=== PATIENT | female | born 1950 | race Caucasian/White ===

== ENCOUNTER 2018-07-04 15:22 | Emergency (ER) | payer MEDICARE ==
[2018-07-04] MEDS ORDERED: METHYLPREDNISOLONE SOD SUCC 125MG/2ML VIAL ONE (16:03)
[2018-07-04] MEDS ORDERED: IPRATROPIUM/ALBUTEROL SULFATE 3 ML SOLUTION IH ONE (16:05)
[2018-07-04 16:28] LABS: EOSINOPHILS % (AUTO) 2.6 % (0.0-8.0); HEMATOCRIT 38.3 % (36-48); LYMPHOCYTES % (AUTO) 8.7 % (21.0-51.0); MEAN CORPUSCULAR HEMOGLOBIN 28.6 pg (27.0-33.0); MEAN CORPUSCULAR HGB CONC 32.4 g/dL (32.0-36.0); MEAN CORPUSCULAR VOLUME 88.1 fL (79-99); MONOCYTES % (AUTO) 12.3 % (3.0-13.0); NEUTROPHILS % (AUTO) 75.4 % (40.0-77.0); NUCLEATED RED BLOOD CELLS 0.1 % (0.0-0.19); PLATELET COUNT (AUTO) 174 K/uL (130-400); RED BLOOD CELL COUNT(AUTO) 4.35 MIL/uL (4.00-5.50); RED CELL DISTRIBUTION WIDTH 15.4 % (11.0-15.5); WHITE BLOOD COUNT (AUTO) 9.4 K/uL (4.8-10.8)
[2018-07-04 16:55] LABS: CREATININE 2.1 mg/dL (0.5-1.5); POTASSIUM 4.2 mmol/L (3.5-5.1)
[2018-07-04 17:01] LABS: ALBUMIN 3.2 g/dL (3.5-5.0); BILIRUBIN,TOTAL 0.4 mg/dL (0.2-1.0); TOTAL PROTEIN, SERUM 6.9 g/dL (6.0-8.3)
[2018-07-04 17:02] LABS: INR 0.97 (0.85-1.15); PARTIAL THROMBOPLASTIN TIME 28.8 SEC (26.3-35.5); PROTHROMBIN TIME 10.2 SEC (9.6-11.6)
== END 2018-07-04 17:59 | disposition home or self-care (01) ==
LOC: EDH 15:22
DX: J44.1 Chronic obstructive pulmonary disease with (acute) exacerbation (principal); R07.1 Chest pain on breathing; Z90.49 Acquired absence of other specified parts of digestive tract; Z87.442 Personal history of urinary calculi; Z88.0 Allergy status to penicillin; Z88.2 Allergy status to sulfonamides; Z88.6 Allergy status to analgesic agent; Z88.8 Allergy status to other drugs, medicaments and biological substances; Z91.041 Radiographic dye allergy status; Z72.0 Tobacco use
CPT/HCPCS: 36415; 71046; 80053; 82550; 84484; 85025; 85610; 85730; 93005; 94640; 96374; 99284; J2930

== ENCOUNTER 2021-03-18 21:56 | Inpatient (IN) | payer MEDICARE ==
[~2021-03-18] VITALS: Ht 175.3 cm; Wt 67.7 kg
[2021-03-19 00:35] LABS: EOSINOPHILS % (AUTO) 5.2 % (0.0-8.0); HEMATOCRIT 33.6 % (36-48); LYMPHOCYTES % (AUTO) 14.4 % (21.0-51.0); MEAN CORPUSCULAR HEMOGLOBIN 29.4 pg (27.0-33.0); MEAN CORPUSCULAR HGB CONC 31.3 g/dL (32.0-36.0); MEAN CORPUSCULAR VOLUME 94.1 fL (79-99); MONOCYTES % (AUTO) 8.3 % (3.0-13.0); NEUTROPHILS % (AUTO) 70.2 % (40.0-77.0); PLATELET COUNT (AUTO) 216 K/uL (130-400); RED BLOOD CELL COUNT(AUTO) 3.57 MIL/uL (4.00-5.50); RED CELL DISTRIBUTION WIDTH 17.6 % (11.0-15.5); WHITE BLOOD COUNT (AUTO) 12.9 K/uL (4.8-10.8)
[2021-03-19 00:44] LABS: ALBUMIN 2.1 g/dL (3.5-5.0); BILIRUBIN,TOTAL 0.3 mg/dL (0.2-1.0); CREATININE 5.2 mg/dL (0.5-1.5); CRP QUANTITATIVE 53.3 mg/L (0.00-9.0); POTASSIUM 5.1 mmol/L (3.5-5.1); TOTAL PROTEIN, SERUM 6.3 g/dL (6.0-8.3)
[2021-03-19 01:04] LABS: B-TYPE NATRIURETIC PEPTIDE 124 pg/mL (0-100)
[2021-03-19 01:39] LABS: ERYTHROCYTE SEDIMENTATION RATE 44 MM/HR (0-30)
[2021-03-19] MEDS ORDERED: DiphenhydrAMINE HCL 50 MG/ML VIAL IV ONE (02:30)
[2021-03-19] MEDS ORDERED: 0.9%NACL 1000ML 1,000 ML IV ONE (03:00)
[2021-03-19] MEDS ORDERED: ACETAMINOPHEN 325 MG TAB PO PRN (03:00)
[2021-03-19] MEDS: 0.9%NACL 1000ML 1,000 ML IV SCH ×2 (03:00→13:37)
[2021-03-19] MEDS ORDERED: CLINDAMYCIN IVPB 900MG/50ML 50 ML IV ONE (03:00)
[2021-03-19] MEDS ORDERED: NITROGLYCERIN 0.4 MG SL TAB SL PRN (03:00)
[2021-03-19] MEDS ORDERED: ONDANSETRON 4MG INJ IVP ONE (03:00)
[2021-03-19] MEDS ORDERED: IPRATROPIUM/ALBUTEROL SULFATE 3 ML SOLUTION IH PRN (03:00)
[2021-03-19 04:11] LABS: BILIRUBIN,URINE Negative (NEGATIVE); COLOR,URINE Yellow (YELLOW); GLUCOSE, URINE (UA) Negative (NEGATIVE); KETONES,URINE Negative (NEGATIVE); LEUKOCYTE ESTERASE ,URINE Large (NEGATIVE); NITRATE,URINE Positive (NEGATIVE); OCCULT BLOOD,URINE Large (NEGATIVE); PH,URINE 5.5 (5.0-8.0); PROTEIN,URINE >=1000 mg/dL (NEGATIVE); UROBILINOGEN,URINE 0.2 mg/dL (0.2-1.0)
[2021-03-19 04:12] LABS: APPEARANCE,URINE CLOUDY (CLEAR)
[2021-03-19 04:27] LABS: BACTERIA,URINE Moderate /HPF (None Seen); RBC,URINE 26-50 /HPF (0-1); SQUAMOUS EPITHELIAL CELL,UR Rare /HPF (0-2); WBC,URINE Full Field /HPF (0-1)
[2021-03-19 05:58] LABS: INR 1.23 (0.85-1.15); PROTHROMBIN TIME 13.2 SEC (9.6-11.6)
[2021-03-19 05:59] LABS: PARTIAL THROMBOPLASTIN TIME 30.9 SEC (26.3-35.5)
[2021-03-19] MEDS: ACETAMINOPHEN 325 MG TAB PO PRN ×3 (06:15→21:27)
[2021-03-19 06:25] LABS: MAGNESIUM 0.3 mg/dL (1.80-2.40)
[2021-03-19] MEDS ORDERED: FAMOTIDINE 20MG TAB PO SCH (09:00)
[2021-03-19] MEDS: FAMOTIDINE 20MG TAB PO SCH ×2 (09:00→21:06)
[2021-03-19] MEDS: HEPARIN 5,000 UNIT VIAL SQ SCH ×3 (09:01→21:11)
[2021-03-19] MEDS: NICOTINE 21 MG/ 24 HR PATCH TD SCH (09:01)
[2021-03-19] MEDS ORDERED: SODIUM BICARBONATE 650 MG TAB PO SCH (10:00)
[2021-03-19 10:18] VITALS: BP 151/88
[2021-03-19] MEDS: CLINDAMYCIN IVPB 600MG/50ML 50 ML IV SCH ×2 (14:20→21:15)
[2021-03-19 15:30] VITALS: BP 137/57
[2021-03-19] MEDS: SODIUM BICARBONATE 650 MG TAB PO SCH (16:55)
[2021-03-19 20:14] VITALS: BP 127/52
[2021-03-19 23:48] VITALS: BP 111/46
[2021-03-20] MEDS: 0.9%NACL 1000ML 1,000 ML IV SCH ×3 (02:27→16:46)
[2021-03-20] MEDS: ACETAMINOPHEN 325 MG TAB PO PRN ×2 (03:20→10:31)
[2021-03-20 03:29] VITALS: BP 108/56
[2021-03-20] MEDS: CLINDAMYCIN IVPB 600MG/50ML 50 ML IV SCH ×3 (04:31→20:59)
[2021-03-20 05:18] LABS: BASOPHILS % (AUTO) 0.9 % (0.0-5.0); EOSINOPHILS % (AUTO) 7.2 % (0.0-8.0); HEMATOCRIT 30.1 % (36-48); LYMPHOCYTES % (AUTO) 19.2 % (21.0-51.0); MEAN CORPUSCULAR HEMOGLOBIN 28.3 pg (27.0-33.0); MEAN CORPUSCULAR HGB CONC 30.6 g/dL (32.0-36.0); MEAN CORPUSCULAR VOLUME 92.6 fL (79-99); NEUTROPHILS % (AUTO) 62.8 % (40.0-77.0); PLATELET COUNT (AUTO) 182 K/uL (130-400); RED BLOOD CELL COUNT(AUTO) 3.25 MIL/uL (4.00-5.50); RED CELL DISTRIBUTION WIDTH 17.6 % (11.0-15.5)
[2021-03-20 05:51] LABS: ALBUMIN 1.9 g/dL (3.5-5.0); BILIRUBIN,TOTAL 0.2 mg/dL (0.2-1.0); CREATININE 4.8 mg/dL (0.5-1.5); MAGNESIUM 0.4 mg/dL (1.80-2.40); TOTAL PROTEIN, SERUM 5.4 g/dL (6.0-8.3)
[2021-03-20 05:54] LABS: % IRON SATURATION 38.7 % (22-44)
[2021-03-20 05:56] LABS: POTASSIUM 4.6 mmol/L (3.5-5.1)
[2021-03-20 08:00] VITALS: BP 110/61
[2021-03-20] MEDS: SODIUM BICARBONATE 650 MG TAB PO SCH ×2 (09:23→16:45)
[2021-03-20] MEDS: NICOTINE 21 MG/ 24 HR PATCH TD SCH (09:23)
[2021-03-20] MEDS: HEPARIN 5,000 UNIT VIAL SQ SCH ×3 (09:23→21:53)
[2021-03-20] MEDS: FAMOTIDINE 20MG TAB PO SCH ×2 (09:23→20:59)
[2021-03-20 12:00] VITALS: BP 133/57
[2021-03-20] MEDS ORDERED: DIPHENHYDRAMINE HCL 25 MG CAPSULE PO ONE (13:00)
[2021-03-20] MEDS: EPOETIN ALFA-EPBX (ESRD) 10,000 UNIT/ML VIAL SQ SCH (13:26)
[2021-03-20 16:00] VITALS: BP 131/59
[2021-03-20 20:00] VITALS: BP 125/49
[2021-03-20] MEDS: ONDANSETRON 4MG INJ IV PRN (23:00)
[2021-03-20] MEDS: HYDROMORPHONE 0.5 MG SYG (0.5MG/0.5ML) IVP PRN (23:03)
[2021-03-21 01:12] VITALS: BP 118/50
[2021-03-21 04:22] VITALS: BP 136/63
[2021-03-21] MEDS: 0.9%NACL 1000ML 1,000 ML IV SCH ×2 (04:52→14:25)
[2021-03-21] MEDS: CLINDAMYCIN IVPB 600MG/50ML 50 ML IV SCH ×3 (04:52→20:35)
[2021-03-21] MEDS: ACETAMINOPHEN 325 MG TAB PO PRN ×2 (04:57→23:14)
[2021-03-21 06:41] LABS: BASOPHILS % (AUTO) 0.8 % (0.0-5.0); EOSINOPHILS % (AUTO) 7.1 % (0.0-8.0); HEMATOCRIT 27.7 % (36-48); LYMPHOCYTES % (AUTO) 20.2 % (21.0-51.0); MEAN CORPUSCULAR HEMOGLOBIN 28.1 pg (27.0-33.0); MEAN CORPUSCULAR HGB CONC 30.3 g/dL (32.0-36.0); MEAN CORPUSCULAR VOLUME 92.6 fL (79-99); MONOCYTES % (AUTO) 11.8 % (3.0-13.0); NEUTROPHILS % (AUTO) 59.2 % (40.0-77.0); PLATELET COUNT (AUTO) 157 K/uL (130-400); RED BLOOD CELL COUNT(AUTO) 2.99 MIL/uL (4.00-5.50); RED CELL DISTRIBUTION WIDTH 17.7 % (11.0-15.5); WHITE BLOOD COUNT (AUTO) 6.3 K/uL (4.8-10.8)
[2021-03-21 06:56] LABS: CARBON DIOXIDE 12 mmol/L (21-32); CHLORIDE 110 mmol/L (101-111); CREATININE 4.9 mg/dL (0.5-1.5); GLOMERULAR FILTR. RATE CALC 9 mL/min (>60); GLUCOSE,RANDOM 73 mg/dL (70-105); SODIUM SERUM 140 mmol/L (136-145); UREA NITROGEN, BLOOD 51 mg/dL (7-18)
[2021-03-21] MEDS: HYDROMORPHONE 0.5 MG SYG (0.5MG/0.5ML) IVP PRN ×3 (07:09→22:58)
[2021-03-21 08:00] VITALS: BP 108/43
[2021-03-21] MEDS: HEPARIN 5,000 UNIT VIAL SQ SCH ×3 (09:00→21:18)
[2021-03-21] MEDS: NICOTINE 21 MG/ 24 HR PATCH TD SCH (10:36)
[2021-03-21] MEDS: SODIUM BICARBONATE 650 MG TAB PO SCH ×2 (10:36→17:00)
[2021-03-21] MEDS: FAMOTIDINE 20MG TAB PO SCH ×2 (10:36→20:35)
[2021-03-21] MEDS ORDERED: DIPHENHYDRAMINE HCL 25 MG CAPSULE ONE (12:34)
[2021-03-21] MEDS ORDERED: CALCITRIOL 0.25 MCG CAP PO SCH (13:00)
[2021-03-21 16:43] VITALS: BP 129/56
[2021-03-21 20:00] VITALS: BP 136/48
[2021-03-21] MEDS: DIPHENHYDRAMINE HCL 25 MG CAPSULE PO PRN (20:35)
[2021-03-21] MEDS: ONDANSETRON 4MG INJ IV PRN (22:58)
[2021-03-21 23:29] VITALS: BP 111/55
[2021-03-22] MEDS: 0.9%NACL 1000ML 1,000 ML IV SCH ×2 (01:00→11:00)
[2021-03-22 04:00] VITALS: BP 145/60
[2021-03-22] MEDS: CLINDAMYCIN IVPB 600MG/50ML 50 ML IV SCH (05:28)
[2021-03-22] MEDS: ONDANSETRON 4MG INJ IV PRN (05:28)
[2021-03-22] MEDS: HYDROMORPHONE 0.5 MG SYG (0.5MG/0.5ML) IVP PRN ×3 (05:28→22:41)
[2021-03-22] MEDS: DIPHENHYDRAMINE HCL 25 MG CAPSULE PO PRN ×3 (05:29→21:23)
[2021-03-22 06:22] LABS: BASOPHILS % (AUTO) 0.8 % (0.0-5.0); EOSINOPHILS % (AUTO) 5.7 % (0.0-8.0); HEMATOCRIT 27.8 % (36-48); LYMPHOCYTES % (AUTO) 20.3 % (21.0-51.0); MEAN CORPUSCULAR HEMOGLOBIN 28.7 pg (27.0-33.0); MEAN CORPUSCULAR VOLUME 89.7 fL (79-99); MONOCYTES % (AUTO) 13.6 % (3.0-13.0); NEUTROPHILS % (AUTO) 58.6 % (40.0-77.0); PLATELET COUNT (AUTO) 153 K/uL (130-400); RED CELL DISTRIBUTION WIDTH 17.6 % (11.0-15.5); WHITE BLOOD COUNT (AUTO) 6.1 K/uL (4.8-10.8)
[2021-03-22 06:44] LABS: ALBUMIN 1.9 g/dL (3.5-5.0); BILIRUBIN,TOTAL 0.2 mg/dL (0.2-1.0); CREATININE 4.4 mg/dL (0.5-1.5); PHOSPHORUS 6.3 mg/dL (2.5-4.9); POTASSIUM 3.7 mmol/L (3.5-5.1); TOTAL PROTEIN, SERUM 5.6 g/dL (6.0-8.3)
[2021-03-22 08:48] VITALS: BP 130/79
[2021-03-22] MEDS: NICOTINE 21 MG/ 24 HR PATCH TD SCH (09:19)
[2021-03-22] MEDS: FAMOTIDINE 20MG TAB PO SCH ×2 (09:20→21:28)
[2021-03-22] MEDS: CALCITRIOL 0.25 MCG CAP PO SCH (09:20)
[2021-03-22] MEDS: SODIUM BICARBONATE 650 MG TAB PO SCH ×2 (09:20→16:52)
[2021-03-22] MEDS: HEPARIN 5,000 UNIT VIAL SQ SCH ×3 (09:35→21:32)
[2021-03-22 12:00] VITALS: BP 141/50
[2021-03-22] MEDS ORDERED: MEROPENEM 1 GM VIAL IVP SCH (12:00)
[2021-03-22] MEDS ORDERED: MEROPENEM 500 MG VIAL IVP SCH (13:00)
[2021-03-22 18:13] VITALS: BP 124/53
[2021-03-22 20:00] VITALS: BP 150/46
[2021-03-22] MEDS: MEROPENEM 500 MG VIAL IVP SCH (22:30)
[2021-03-23] VITALS (7 sets, daily range): BP systolic 116–163; BP diastolic 48–59
[2021-03-23 05:01] LABS: BASOPHILS % (AUTO) 0.8 % (0.0-5.0); EOSINOPHILS % (AUTO) 7.5 % (0.0-8.0); HEMATOCRIT 26.8 % (36-48); LYMPHOCYTES % (AUTO) 22.9 % (21.0-51.0); MEAN CORPUSCULAR HEMOGLOBIN 28.8 pg (27.0-33.0); MEAN CORPUSCULAR HGB CONC 31.7 g/dL (32.0-36.0); MEAN CORPUSCULAR VOLUME 90.8 fL (79-99); MONOCYTES % (AUTO) 12.6 % (3.0-13.0); PLATELET COUNT (AUTO) 147 K/uL (130-400); RED BLOOD CELL COUNT(AUTO) 2.95 MIL/uL (4.00-5.50); RED CELL DISTRIBUTION WIDTH 17.6 % (11.0-15.5)
[2021-03-23 05:28] LABS: ALANINE AMINOTRANSFERASE 19 U/L (12-78); ALBUMIN 1.7 g/dL (3.5-5.0); ASPARTATE AMINOTRANSFERASE 19 U/L (10-37); BILIRUBIN,TOTAL 0.1 mg/dL (0.2-1.0); CARBON DIOXIDE 14 mmol/L (21-32); CHLORIDE 110 mmol/L (101-111); CREATININE 4.3 mg/dL (0.5-1.5); GLOMERULAR FILTR. RATE CALC 11 mL/min (>60); GLUCOSE,RANDOM 79 mg/dL (70-105); POTASSIUM 3.9 mmol/L (3.5-5.1); SODIUM SERUM 141 mmol/L (136-145); TOTAL PROTEIN, SERUM 5.2 g/dL (6.0-8.3); UREA NITROGEN, BLOOD 46 mg/dL (7-18)
[2021-03-23] MEDS: HYDROMORPHONE 0.5 MG SYG (0.5MG/0.5ML) IVP PRN ×2 (08:23→23:09)
[2021-03-23] MEDS: SODIUM BICARBONATE 650 MG TAB PO SCH ×2 (08:24→16:48)
[2021-03-23] MEDS: DIPHENHYDRAMINE HCL 25 MG CAPSULE PO PRN ×2 (08:24→19:54)
[2021-03-23] MEDS: NICOTINE 21 MG/ 24 HR PATCH TD SCH (10:05)
[2021-03-23] MEDS: FAMOTIDINE 20MG TAB PO SCH ×2 (10:05→20:43)
[2021-03-23] MEDS: MEROPENEM 500 MG VIAL IVP SCH ×2 (10:05→20:42)
[2021-03-23] MEDS: HEPARIN 5,000 UNIT VIAL SQ SCH ×3 (10:06→20:52)
[2021-03-23] MEDS: CALCITRIOL 0.25 MCG CAP PO SCH (10:06)
[2021-03-23] MEDS: EPOETIN ALFA-EPBX (ESRD) 10,000 UNIT/ML VIAL SQ SCH (11:55)
[2021-03-24] VITALS (7 sets, daily range): BP systolic 117–156; BP diastolic 44–68
[2021-03-24] MEDS: ACETAMINOPHEN 325 MG TAB PO PRN ×2 (00:53→23:24)
[2021-03-24] MEDS: 0.9%NACL 1000ML 1,000 ML IV SCH ×3 (02:31→23:00)
[2021-03-24 05:13] LABS: BASOPHILS % (AUTO) 0.5 % (0.0-5.0); EOSINOPHILS % (AUTO) 6.5 % (0.0-8.0); HEMATOCRIT 30.6 % (36-48); LYMPHOCYTES % (AUTO) 16.6 % (21.0-51.0); MEAN CORPUSCULAR HEMOGLOBIN 28.5 pg (27.0-33.0); MEAN CORPUSCULAR HGB CONC 30.7 g/dL (32.0-36.0); MEAN CORPUSCULAR VOLUME 92.7 fL (79-99); MONOCYTES % (AUTO) 13.3 % (3.0-13.0); NEUTROPHILS % (AUTO) 61.2 % (40.0-77.0); PLATELET COUNT (AUTO) 153 K/uL (130-400); RED CELL DISTRIBUTION WIDTH 17.8 % (11.0-15.5); WHITE BLOOD COUNT (AUTO) 7.4 K/uL (4.8-10.8)
[2021-03-24] MEDS: HYDROMORPHONE 0.5 MG SYG (0.5MG/0.5ML) IVP PRN ×2 (05:23→21:26)
[2021-03-24 06:14] LABS: ALBUMIN 1.9 g/dL (3.5-5.0); BILIRUBIN,TOTAL 0.2 mg/dL (0.2-1.0); CREATININE 4.4 mg/dL (0.5-1.5); PHOSPHORUS 5.3 mg/dL (2.5-4.9); POTASSIUM 4.1 mmol/L (3.5-5.1); THYROID STIMULATING HORMONE 11.38 uIU/mL (0.36-3.74)
[2021-03-24] MEDS: SODIUM BICARBONATE 650 MG TAB PO SCH ×2 (08:40→17:03)
[2021-03-24] MEDS: HEPARIN 5,000 UNIT VIAL SQ SCH (10:12)
[2021-03-24] MEDS: CALCITRIOL 0.25 MCG CAP PO SCH (10:13)
[2021-03-24] MEDS: FAMOTIDINE 20MG TAB PO SCH ×2 (10:13→21:22)
[2021-03-24] MEDS: DIPHENHYDRAMINE HCL 25 MG CAPSULE PO PRN ×2 (10:13→21:25)
[2021-03-24] MEDS: MEROPENEM 500 MG VIAL IVP SCH ×2 (10:14→21:22)
[2021-03-24] MEDS: NICOTINE 21 MG/ 24 HR PATCH TD SCH (10:14)
[2021-03-25 03:49] VITALS: BP 138/66
[2021-03-25] MEDS: HYDROMORPHONE 0.5 MG SYG (0.5MG/0.5ML) IVP PRN (03:58)
[2021-03-25 07:57] VITALS: BP 157/57
[2021-03-25] MEDS ORDERED: COMPOUND IV MISC 1 EACH IVSOLN MISC PRN (08:30)
[2021-03-25 08:31] LABS: HEMATOCRIT 27.8 % (36-48); MEAN CORPUSCULAR HGB CONC 31.7 g/dL (32.0-36.0); MEAN CORPUSCULAR VOLUME 91.7 fL (79-99); RED BLOOD CELL COUNT(AUTO) 3.03 MIL/uL (4.00-5.50); RED CELL DISTRIBUTION WIDTH 17.9 % (11.0-15.5); WHITE BLOOD COUNT (AUTO) 7.6 K/uL (4.8-10.8)
[2021-03-25 08:48] LABS: ALBUMIN 1.7 g/dL (3.5-5.0); BILIRUBIN,TOTAL 0.2 mg/dL (0.2-1.0); CREATININE 4.2 mg/dL (0.5-1.5); POTASSIUM 3.8 mmol/L (3.5-5.1); TOTAL PROTEIN, SERUM 5.4 g/dL (6.0-8.3)
[2021-03-25] MEDS: CALCITRIOL 0.25 MCG CAP PO SCH (10:11)
[2021-03-25] MEDS: FAMOTIDINE 20MG TAB PO SCH ×2 (10:11→20:03)
[2021-03-25] MEDS: NICOTINE 21 MG/ 24 HR PATCH TD SCH (10:11)
[2021-03-25] MEDS: MEROPENEM 500 MG VIAL IVP SCH (10:11)
[2021-03-25] MEDS: DIPHENHYDRAMINE HCL 25 MG CAPSULE PO PRN (10:11)
[2021-03-25] MEDS: TICAGRELOR 90 MG TABLET PO SCH ×2 (10:12→20:03)
[2021-03-25] MEDS: 0.9%NACL 1000ML 1,000 ML IV SCH ×2 (10:12→17:25)
[2021-03-25] MEDS: IRON SUCROSE COMPLEX 300 MG in 0.9%NACL 50ML 50 ML IV SCH (10:12)
[2021-03-25] MEDS: SODIUM BICARBONATE 650 MG TAB PO SCH ×2 (10:12→17:24)
[2021-03-25 12:01] VITALS: BP 142/60
[2021-03-25 16:42] VITALS: BP 147/61
[2021-03-25] MEDS: CEFUROXIME AXETIL 250 MG TABLET PO SCH (17:24)
[2021-03-25] MEDS: LEVOFLOXACIN 500 MG TABLET PO SCH (17:24)
[2021-03-25 20:15] VITALS: BP 146/62
[2021-03-25] MEDS ORDERED: HYDROMORPHONE 0.5 MG SYG (0.5MG/0.5ML) ONE (21:46)
[2021-03-25] MEDS: ACETAMINOPHEN 325 MG TAB PO PRN (21:53)
[2021-03-25] MEDS ORDERED: HYDROMORPHONE 0.5 MG SYG (0.5MG/0.5ML) IVP PRN (22:00)
[2021-03-26] VITALS: BP 141/61
[2021-03-26 03:47] VITALS: BP 136/60
[2021-03-26 04:58] LABS: HEMATOCRIT 25.7 % (36-48); MEAN CORPUSCULAR HEMOGLOBIN 28.4 pg (27.0-33.0); MEAN CORPUSCULAR HGB CONC 31.5 g/dL (32.0-36.0); MEAN CORPUSCULAR VOLUME 90.2 fL (79-99); PLATELET COUNT (AUTO) 144 K/uL (130-400); RED BLOOD CELL COUNT(AUTO) 2.85 MIL/uL (4.00-5.50); WHITE BLOOD COUNT (AUTO) 7.5 K/uL (4.8-10.8)
[2021-03-26] MEDS: 0.9%NACL 1000ML 1,000 ML IV SCH (05:00)
[2021-03-26 05:31] LABS: BAND NEUTROPHILS % (MANUAL) 2 % (0-2); EOSINOPHILS % (MANUAL) 12 % (1-6); LYMPHOCYTES % (MANUAL) 20 % (22-44); MAN.DIFF COMMENT-IMPRESSION MANUAL DIFFERENTIAL; MONOCYTES % (MANUAL) 9 % (2-9); SEGMENTED NEUTROPHILS % 57 % (40-70)
[2021-03-26 05:34] LABS: PLATELET MORPHOLOGY COMMENT ADEQUATE
[2021-03-26 06:06] LABS: CREATININE 4.3 mg/dL (0.5-1.5); POTASSIUM 3.5 mmol/L (3.5-5.1)
[2021-03-26 06:19] LABS: ALBUMIN 1.6 g/dL (3.5-5.0); BILIRUBIN,TOTAL 0.1 mg/dL (0.2-1.0); TOTAL PROTEIN, SERUM 5.2 g/dL (6.0-8.3)
[2021-03-26 08:01] VITALS: BP 164/55
[2021-03-26] MEDS: IRON SUCROSE COMPLEX 300 MG in 0.9%NACL 50ML 50 ML IV SCH ×2 (09:00→10:13)
[2021-03-26] MEDS: CALCITRIOL 0.25 MCG CAP PO SCH (10:10)
[2021-03-26] MEDS: TICAGRELOR 90 MG TABLET PO SCH (10:11)
[2021-03-26] MEDS: SODIUM BICARBONATE 650 MG TAB PO SCH (10:12)
[2021-03-26] MEDS: FAMOTIDINE 20MG TAB PO SCH (10:12)
[2021-03-26] MEDS: NICOTINE 21 MG/ 24 HR PATCH TD SCH (10:28)
[2021-03-26] MEDS ORDERED: LEVO750T46 PO (11:06)
[2021-03-26 11:17] VITALS: BP 152/71
[2021-03-26] MEDS: LEVOFLOXACIN 500 MG TABLET PO SCH (13:05)
[2021-03-26] MEDS: CEFUROXIME AXETIL 250 MG TABLET PO SCH (13:06)
== END 2021-03-26 13:00 | disposition home or self-care (01) | DRG 540 ==
LOC: EDH 21:56 → EDHIP 03-19 02:41 → 3DH 03-19 15:41
PROVIDERS: ADMIT Internal Medicine; ATTEND Internal Medicine
DX: M86.8X7 Other osteomyelitis, ankle and foot (principal); L03.116 Cellulitis of left lower limb; E87.2 Acidosis; N17.9 Acute kidney failure, unspecified; K50.90 Crohn's disease, unspecified, without complications; N39.0 Urinary tract infection, site not specified; N18.4 Chronic kidney disease, stage 4 (severe); I96 Gangrene, not elsewhere classified; I73.9 Peripheral vascular disease, unspecified; L97.529 Non-pressure chronic ulcer of other part of left foot with unspecified severity; Z20.822 Contact with and (suspected) exposure to COVID-19; E78.00 Pure hypercholesterolemia, unspecified; K21.9 Gastro-esophageal reflux disease without esophagitis; J44.9 Chronic obstructive pulmonary disease, unspecified; M19.90 Unspecified osteoarthritis, unspecified site; F17.210 Nicotine dependence, cigarettes, uncomplicated; B96.20 Unspecified Escherichia coli [E. coli] as the cause of diseases classified elsewhere; D49.7 Neoplasm of unspecified behavior of endocrine glands and other parts of nervous system; D50.9 Iron deficiency anemia, unspecified; Z66 Do not resuscitate; D63.8 Anemia in other chronic diseases classified elsewhere; E83.42 Hypomagnesemia; I12.9 Hypertensive chronic kidney disease with stage 1 through stage 4 chronic kidney disease, or unspecified chronic kidney disease; E83.51 Hypocalcemia; B96.4 Proteus (mirabilis) (morganii) as the cause of diseases classified elsewhere; G89.29 Other chronic pain; N28.89 Other specified disorders of kidney and ureter; Z53.29 Procedure and treatment not carried out because of patient's decision for other reasons; Z51.5 Encounter for palliative care; Z90.710 Acquired absence of both cervix and uterus; Z90.49 Acquired absence of other specified parts of digestive tract; Z88.0 Allergy status to penicillin; Z88.2 Allergy status to sulfonamides; Z88.8 Allergy status to other drugs, medicaments and biological substances; Z88.6 Allergy status to analgesic agent; Z91.041 Radiographic dye allergy status; Z87.442 Personal history of urinary calculi; Z88.1 Allergy status to other antibiotic agents; Z89.519 Acquired absence of unspecified leg below knee; Z91.15 Patient's noncompliance with renal dialysis; Z91.19 Patient's noncompliance with other medical treatment and regimen; Z81.8 Family history of other mental and behavioral disorders; Z82.49 Family history of ischemic heart disease and other diseases of the circulatory system
CPT/HCPCS: 36415; 71045; 73700; 80048; 80053; 80061; 81001; 82306; 82330; 82728; 83540; 83550; 83605; 83735; 83880; 84100; 84145; 84443; 84484; 85025; 85027; 85610; 85651; 85730; 86140; 87040; 87070; 87076; 87077; 87088; 87186; 87635; 87804; 93005; 93925; 93970; 94640; 94664; C9803; G0378; J1170; J1200; J1644; J1756; J2185; J2405; J3490; J7030; Q0163

== ENCOUNTER 2022-04-07 22:21 | Emergency (ER) | payer MEDICARE ==
[~2022-04-07 22:21] MED LIST: ALBU18HF7 IH; AMIO200T68 PO; ASCO500T10 PO; CHOL500051 PO; DIPH25CA85 PO; FOLI0.8T43 PO; GABA300S PO; IPRA3AMP24 IH; LISI40TA9 PO; MELA5TAB20 PO; PANT40TA PO; SEVE800T27 PO; [UNRECOGNIZED DRUG - CODE] PO
[2022-04-07 22:56] LABS: BASOPHILS % (AUTO) 0.9 % (0.0-5.0); EOSINOPHILS % (AUTO) 3.9 % (0.0-8.0); HEMATOCRIT 37.8 % (36-48); LYMPHOCYTES % (AUTO) 19.8 % (21.0-51.0); MEAN CORPUSCULAR HEMOGLOBIN 28.3 pg (27.0-33.0); MEAN CORPUSCULAR HGB CONC 32.5 g/dL (32.0-36.0); MEAN CORPUSCULAR VOLUME 87.1 fL (79-99); MONOCYTES % (AUTO) 11.5 % (3.0-13.0); NEUTROPHILS % (AUTO) 63.7 % (40.0-77.0); PLATELET COUNT (AUTO) 86 K/uL (130-400); RED BLOOD CELL COUNT(AUTO) 4.34 MIL/uL (4.00-5.50); RED CELL DISTRIBUTION WIDTH 14.6 % (11.0-15.5); WHITE BLOOD COUNT (AUTO) 4.4 K/uL (4.8-10.8)
[2022-04-07] MEDS ORDERED: HYDROMORPHONE 0.5 MG SYG (0.5MG/0.5ML) IM ONE (23:00)
[2022-04-07 23:05] LABS: CREATININE 4.4 mg/dL (0.5-1.5); POTASSIUM 3.9 mmol/L (3.5-5.1)
[2022-04-07 23:10] LABS: ALBUMIN 2.9 g/dL (3.5-5.0); TOTAL PROTEIN, SERUM 6.4 g/dL (6.0-8.3)
[2022-04-08] MEDS ORDERED: CLONIDINE HCL 0.2 MG TABLET PO ONE (00:30)
[2022-04-08 09:36] VITALS: BP 117/61
[2022-04-09] MEDS ORDERED: ROSU20TA31 PO (14:18)
[2022-04-09] MEDS ORDERED: LOPE2TAB26 PO (14:18)
[2022-04-09] MEDS ORDERED: GABA-529 PO (14:18)
[2022-04-09] MEDS ORDERED: CALC667C10 PO (14:18)
[2022-04-09] MEDS ORDERED: VITA-164 PO (14:18)
[2022-04-09] MEDS ORDERED: MELA1TAB21 PO (14:18)
[2022-04-11] MEDS ORDERED: TOPI25TA42 PO (12:14)
[2022-04-11] MEDS ORDERED: DIPH25TA22 PO (12:14)
[2022-04-11] MEDS ORDERED: PROC5TAB12 PO (12:14)
== END 2022-04-08 09:36 | disposition home or self-care (01) ==
LOC: EDH 22:21
DX: G43.909 Migraine, unspecified, not intractable, without status migrainosus (principal); J45.909 Unspecified asthma, uncomplicated; E78.00 Pure hypercholesterolemia, unspecified; Z79.899 Other long term (current) drug therapy; Z88.0 Allergy status to penicillin; Z88.2 Allergy status to sulfonamides; Z88.6 Allergy status to analgesic agent; Z88.8 Allergy status to other drugs, medicaments and biological substances
CPT/HCPCS: 99285; 70450; 71045; 84484; 80053; 85025; 36415; 96372; 93005; J1170

== ENCOUNTER 2022-10-09 17:15 | Emergency (ER) | payer MEDICARE ==
[~2022-10-09] VITALS: Ht 175.3 cm; Wt 70.3 kg
[~2022-10-09 17:15] MED LIST changes: -AMIO200T68 PO; -ASCO500T10 PO; +CALC667C10 PO; -CHOL500051 PO; -DIPH25CA85 PO; +DIPH25TA22 PO; -FOLI0.8T43 PO; +GABA-529 PO; -GABA300S PO; -LISI40TA9 PO; +LOPE2TAB26 PO; +MELA1TAB73 PO; -MELA5TAB20 PO; +PROC5TAB12 PO; +ROSU20TA31 PO; +TOPI25TA42 PO; +VITA-348 PO; -[UNRECOGNIZED DRUG - CODE] PO
[2022-10-09 17:55] LABS: HEMATOCRIT 35.6 % (36-48); MEAN CORPUSCULAR HEMOGLOBIN 28.5 pg (27.0-33.0); MEAN CORPUSCULAR HGB CONC 31.2 g/dL (32.0-36.0); MEAN CORPUSCULAR VOLUME 91.5 fL (79-99); RED BLOOD CELL COUNT(AUTO) 3.89 MIL/uL (4.00-5.50)
[2022-10-09 18:01] LABS: APPEARANCE,URINE CLOUDY (CLEAR); BILIRUBIN,URINE NEGATIVE (NEGATIVE); COLOR,URINE LIGHT-ORANGE (YELLOW); GLUCOSE, URINE (UA) 200 mg/dL (NEGATIVE); KETONES,URINE NEGATIVE (NEGATIVE); LEUKOCYTE ESTERASE ,URINE 500 Leu/uL (NEGATIVE); NITRATE,URINE NEGATIVE (NEGATIVE); OCCULT BLOOD,URINE LARGE (NEGATIVE); PH,URINE 8.5 (5.0-8.0); PROTEIN,URINE 600 mg/dL (NEGATIVE); UROBILINOGEN,URINE 0.2 mg/dL (0.2-1.0)
[2022-10-09 18:11] LABS: BACTERIA,URINE MOD /HPF (None Seen); OTHER CASTS, URINE 3 /LPF (None Seen); RBC,URINE TNTC /HPF (0-1); SQUAMOUS EPITHELIAL CELL,UR FEW /HPF (0-2); TRANSITIONAL EPI CELLS,URINE RARE /HPF (None Seen); WBC,URINE TNTC /HPF (0-1)
[2022-10-09 18:12] LABS: CREATININE 7.6 mg/dL (0.5-1.5); POTASSIUM 4.3 mmol/L (3.5-5.1)
[2022-10-09 18:19] LABS: ALBUMIN 2.9 g/dL (3.5-5.0); TOTAL PROTEIN, SERUM 6.1 g/dL (6.0-8.3)
[2022-10-09] MEDS ORDERED: LEVOFLOXACIN 750 MG/D5W 150 ML 150 ML ONE (22:56)
[2022-10-09] MEDS ORDERED: LEVOFLOXACIN 750 MG/D5W 150ML BAG IVPB ONE (23:00)
[2022-10-10] MEDS ORDERED: LEVO750T68 PO (00:42)
[2022-10-10 03:31] VITALS: BP 141/82
== END 2022-10-10 05:11 | disposition home or self-care (01) ==
LOC: EDH 17:15
DX: N39.0 Urinary tract infection, site not specified (principal); R06.02 Shortness of breath; J44.9 Chronic obstructive pulmonary disease, unspecified; F41.9 Anxiety disorder, unspecified; N18.6 End stage renal disease; F17.200 Nicotine dependence, unspecified, uncomplicated; Z90.710 Acquired absence of both cervix and uterus; Z79.899 Other long term (current) drug therapy; Z99.2 Dependence on renal dialysis; Z88.0 Allergy status to penicillin; Z88.1 Allergy status to other antibiotic agents; Z88.2 Allergy status to sulfonamides; Z88.6 Allergy status to analgesic agent; Z88.8 Allergy status to other drugs, medicaments and biological substances; Z90.49 Acquired absence of other specified parts of digestive tract; Z20.822 Contact with and (suspected) exposure to COVID-19
CPT/HCPCS: 99285; 96365; 96366; 71045; 87635; 84484; 80053; 83880; 85027; 87077; 87088; 87186; 87804 ×2; 81001; 36415; 93005; C9803; J1956

== ENCOUNTER 2022-11-22 14:57 | Emergency (ER) | payer MEDICARE ==
[~2022-11-22] VITALS: Ht 175.3 cm; Wt 77.1 kg
[~2022-11-22 14:57] MED LIST changes: -ALBU18HF7 IH; +BRESALTEC IH; -DIPH25TA22 PO; -IPRA3AMP24 IH; -LOPE2TAB26 PO; -MELA1TAB73 PO; +OMEP40CA21 PO; -PANT40TA PO; -ROSU20TA31 PO; -SEVE800T27 PO; -VITA-348 PO
[2022-11-22 17:37] LABS: APPEARANCE,URINE CLOUDY (CLEAR); BILIRUBIN,URINE NEGATIVE (NEGATIVE); COLOR,URINE LIGHT-YELLOW (YELLOW); GLUCOSE, URINE (UA) 150 mg/dL (NEGATIVE); KETONES,URINE 5 mg/dL (NEGATIVE); LEUKOCYTE ESTERASE ,URINE 500 Leu/uL (NEGATIVE); NITRATE,URINE NEGATIVE (NEGATIVE); OCCULT BLOOD,URINE LARGE (NEGATIVE); PROTEIN,URINE 600 mg/dL (NEGATIVE); UROBILINOGEN,URINE 0.2 mg/dL (0.2-1.0)
[2022-11-22 17:42] LABS: BACTERIA,URINE FEW /HPF (None Seen); MUCUS,URINE RARE LPF (None Seen); RBC,URINE 51-100 /HPF (0-1); SQUAMOUS EPITHELIAL CELL,UR MOD /HPF (0-2); WBC,URINE 51-100 /HPF (0-1); YEAST,URINE BUDDING RARE /HPF (None Seen)
[2022-11-22 17:59] LABS: BASOPHILS % (AUTO) 0.3 % (0.0-5.0); EOSINOPHILS % (AUTO) 0.8 % (0.0-8.0); LYMPHOCYTES % (AUTO) 7.5 % (21.0-51.0); MEAN CORPUSCULAR HEMOGLOBIN 30.4 pg (27.0-33.0); MEAN CORPUSCULAR HGB CONC 30.9 g/dL (32.0-36.0); MEAN CORPUSCULAR VOLUME 98.4 fL (79-99); MONOCYTES % (AUTO) 5.3 % (3.0-13.0); NEUTROPHILS % (AUTO) 85.8 % (40.0-77.0); PLATELET COUNT (AUTO) 91 K/uL (130-400); RED BLOOD CELL COUNT(AUTO) 4.37 MIL/uL (4.00-5.50); RED CELL DISTRIBUTION WIDTH 18.8 % (11.0-15.5); WHITE BLOOD COUNT (AUTO) 3.6 K/uL (4.8-10.8)
[2022-11-22 18:08] LABS: CREATININE 4.9 mg/dL (0.5-1.5); POTASSIUM 5.1 mmol/L (3.5-5.1)
[2022-11-22] MEDS ORDERED: HYDRALAZINE 20MG/ML VIAL IV ONE (18:30)
[2022-11-22] MEDS ORDERED: CEPH500T PO (18:53)
[2022-11-22] MEDS ORDERED: CEPHALEXIN 500 MG CAPSULE PO ONE (19:00)
[2022-11-22] MEDS ORDERED: CLONIDINE HCL 0.2 MG TABLET PO ONE (20:00)
[2022-11-23 01:00] VITALS: BP 162/75
== END 2022-11-23 01:48 | disposition home or self-care (01) ==
LOC: EDH 14:57
DX: N39.0 Urinary tract infection, site not specified (principal); R51.9 Headache, unspecified; I12.0 Hypertensive chronic kidney disease with stage 5 chronic kidney disease or end stage renal disease; E11.22 Type 2 diabetes mellitus with diabetic chronic kidney disease; E78.00 Pure hypercholesterolemia, unspecified; F17.200 Nicotine dependence, unspecified, uncomplicated; Z89.512 Acquired absence of left leg below knee; Z98.890 Other specified postprocedural states; Z79.899 Other long term (current) drug therapy; Z99.2 Dependence on renal dialysis; Z88.0 Allergy status to penicillin; Z88.1 Allergy status to other antibiotic agents; Z88.2 Allergy status to sulfonamides; Z88.6 Allergy status to analgesic agent; Z88.8 Allergy status to other drugs, medicaments and biological substances; Z91.040 Latex allergy status
CPT/HCPCS: 99285; 96374; 70450; 80048; 85025; 87088; 81001; 36415; J0360